=== PATIENT | female | born 1975 | race Caucasian/White ===

== ENCOUNTER → 2024-04-16 11:11 | Outpatient (REF) | payer BC, SELFPAY | LOC: WDC 11:11 | PROVIDERS: ATTENDING PHYSICIAN Physician Assistant Medical | DX: Z12.31 Encounter for screening mammogram for malignant neoplasm of breast (principal) | CPT/HCPCS: 77063; 77067 ==

== ENCOUNTER 2024-11-17 06:28 | Day surgery (SDC) | payer BC, SELFPAY | END 2024-11-17 09:45 | disposition home or self-care (01) | LOC: GI 06:28 | PROVIDERS: ATTENDING PHYSICIAN Internal Medicine | DX: K22.89 Other specified disease of esophagus (principal); K44.9 Diaphragmatic hernia without obstruction or gangrene; K31.7 Polyp of stomach and duodenum; K29.50 Unspecified chronic gastritis without bleeding; K21.00 Gastro-esophageal reflux disease with esophagitis, without bleeding; Z80.0 Family history of malignant neoplasm of digestive organs; Z13.810 Encounter for screening for upper gastrointestinal disorder | CPT/HCPCS: 43239; 88305; 88342 ==

== ENCOUNTER → 2024-12-29 17:25 | Outpatient (REF) | payer BC, SELFPAY | LOC: RAD 17:25 | PROVIDERS: ATTENDING PHYSICIAN Obstetrics & Gynecology; FAMILY PHYSICIAN Physician Assistant Medical | DX: N92.0 Excessive and frequent menstruation with regular cycle (principal) | CPT/HCPCS: 76830; 76856 ==

== ENCOUNTER 2025-04-26 06:15 | Day surgery (SDC) | payer BC, SELFPAY ==
[2025-04-13 13:54] VITALS: BMI 31.5
[2025-04-13 14:42] LABS: Hematocrit 37.1 % (37.0-47.0); Hemoglobin 12.3 g/dL (12.0-16.0); Mean Corp Hgb Conc. 33.2 g/dL (33.0-37.0); Mean Corpuscular Volume 88.1 fL (81.0-99.0); Nucleated Red Blood Cells % 0 %; Platelet Count 159 10^3/uL (130-400); Red Cell Dist. Width 13.7 % (11.5-14.5)
[2025-04-13 14:53] LABS: Blood Urea Nitrogen 10 mg/dl (7-17); Calcium 9.3 mg/dl (8.4-10.2); Carbon Dioxide 26 mmol/L (22-30); Chloride 105 mmol/L (98-107); Estimated Creatinine Clearance > 125 ml/min; Glucose 108 mg/dl (70-99); Potassium 4.3 mmol/L (3.5-5.1); Sodium 138 mmol/L (135-145); eGFR > 60.00
[2025-04-26] VITALS (10 sets, daily range): BP systolic 129–159; BP diastolic 71–95; BMI 31.5
[2025-04-26] MEDS: NORMOSOL-R/PLASMALYTE-A 1000 IV (09:30)
--- NOTE | 2025-04-26 12:28 | W.IMMPOSTOP ---
Addendum entered and electronically signed by Komal Camarillo DO 04/26/25 12:38:
Preop/postop dx: menorrhagia, symptomatic fibroid uterus
Original Note:
Surgical Immed Post Op Note
-
Primary Surgeon: Komal Camarillo DO
Intake Worker: SHANKAR Walton
Pre-op Diagnosis: Menorrhagia
Post-op Diagnosis: same
Procedure Performed: Robotic total laparoscopic hysterectomy bilateral salpingectomy
Anesthesia Type: general ET Dr. Toro
Specimen / Cultures: uterus, cervix, bilateral fallopian tubes
Estimated Blood Loss: 10ml
Urine output: 150ml Clear yellow urine
IV fluids: 1000mL
Complications: none
Operative Findings: Normal sized uterus sounded to 9cm, with anterior fibroid near upper cervix/lower uterus to right of midline. Normal appearing tubes and ovaries bilaterally.
Counts correct times 2.
Stable to recovery.
[2025-04-26] MEDS: DILAUDID 0.25 MG IV (13:30)
== END 2025-04-26 15:30 | disposition home or self-care (01) ==
LOC: SDS 06:15
PROVIDERS: ATTENDING PHYSICIAN Obstetrics & Gynecology; FAMILY PHYSICIAN Physician Assistant Medical
DX: D25.9 Leiomyoma of uterus, unspecified (principal); N92.0 Excessive and frequent menstruation with regular cycle; N83.8 Other noninflammatory disorders of ovary, fallopian tube and broad ligament
CPT/HCPCS: 58571; 36415; 80048; 85025; 86850; 86900; 86901; 88307; C1776

== ENCOUNTER → 2025-05-17 15:34 | Outpatient (REF) | payer BC, SELFPAY | LOC: WDC 15:34 | PROVIDERS: ATTENDING PHYSICIAN Obstetrics & Gynecology | DX: Z12.31 Encounter for screening mammogram for malignant neoplasm of breast (principal) | CPT/HCPCS: 77063; 77067 ==